=== PATIENT | female | born 1955 ===

== ENCOUNTER 2016-09-03 20:39 | Emergency (ER) | payer SELFPAY ==
[~2016-09-03] VITALS: Ht 160 cm; Wt 46.0 kg
[2016-09-03 20:52] VITALS: Ht 160 cm; Wt 46.0 kg
== END 2016-09-04 00:20 | disposition left against medical advice (07) ==
LOC: FTE 20:39
DX: Z53.21 Procedure and treatment not carried out due to patient leaving prior to being seen by health care provider (principal)